=== PATIENT | male | born 1980 | race Caucasian/White ===

== ENCOUNTER 2019-12-23 11:52 | Emergency (ER) | payer BC, SELFPAY ==
[2019-12-23 12:09] VITALS: BP 165/90; PULSE 72; RESP 16; TEMP 37.2; O2SAT 98; BMI 39.3
--- NOTE | 2019-12-23 12:12 | HMH.EDUTC ---
[facility] [place] Clinical Impression: COVID-19 Disposition: Home, Self-Care Condition on Discharge: Good Instructions: Preventing the Spread of Coronavirus Discharge Instructions Additional Instructions: Drink plenty of fluids. Take tylenol for pain or fever. Return if you begin to have difficulty breathing. Follow up with your regular doctor. GO TO THE ER FOR ANY WORSENING SYMPTOMS Referrals: PCP,No [Primary Care Provider] - Time of Disposition: 12:14 Medical Decision Making - Medical Records Medical records reviewed: No: I reviewed the patient's medical records. - Chevy Inquiry Pt receiving controlled substance: No Vital Signs: 12/23/19 12:09 12/23/19 12:32 Temperature 99 F 99 F Temperature Source Oral Oral Pulse Rate 72 Pulse Rate [Radial] 72 Respiratory Rate 16 16 Blood Pressure 165/90 H Blood Pressure [Right Arm] 165/90 H Blood Pressure Mean [Right Arm] 115 Blood Pressure Source Automatic Cuff Blood Pressure Source [Right Arm] Automatic Cuff Blood Pressure Position Sitting Blood Pressure Position [Right Arm] Sitting 02 Sat by Pulse Oximetry 98 Oxygen Delivery Method Room Air Room Air [facility] [place] - General Stated complaint: covid positive, needs another test Time Seen by Provider: 12/23/19 12:12 - History of Present Illness Provider Complaint: He tested positive last week for covid. He denies any symptoms in the past several days. He needs a negative test to be allowed to go back to work. - Related Data Allergies Allergy/AdvReac Type Severity Reaction Status Date / Time No Known Allergies Allergy Verified 12/23/19 12:12 [facility] History - Hepatitis A Screen Attestation statement:: This patient has been screened for Hepatitis A risk factors. I have reviewed the patient's past medical history: Yes ROS Obtained: Yes All systems reviewed & no additional complaints - Constitutional Constitutional: Reports system reviewed and no additional complaints, except as docu - Eyes Eyes: Reports system reviewed and no additional complaints, except as docu - ENT Ears, Nose, Mouth, and Throat: Reports system reviewed and no additional complaints, except as docu - Cardiovascular Cardiovascular: Reports system reviewed and no additional complaints, except as docu - Respiratory Respiratory: Yes system reviewed and no additional complaints, except as docu Physical Exam - General General appearance: alert, in no apparent distress - Head Head exam: atraumatic, normocephalic, normal inspection - Eye Eye exam: Present: normal appearance, PERRL, EOMI - ENT ENT exam: Present: normal exam, normal oropharynx, mucous membranes moist, TM's normal bilaterally, normal external ear exam - Neck Neck exam: Present: normal inspection, full ROM, trachea midline. Absent: meningismus, lymphadenopathy - Chest Chest inspection: Present: normal inspection, symmetric chest wall rise. Absent: tenderness - Respiratory Respiratory exam: Present: normal lung sounds bilaterally. Absent: respiratory distress - Cardiovascular Cardiovascular exam: Present: regular rate, normal rhythm. Absent: JVD - Abdominal Exam Abdominal exam: Present: soft, normal bowel sounds. Absent: distention, tenderness, guarding - Extremities Exam Extremities exam: Present: normal inspection, full ROM, normal capillary refill. Absent: calf tenderness - Back Exam Back exam: Present: normal inspection. Absent: tenderness - Neurological Exam Neurological exam: Present: alert, oriented X3 - Psychiatric Psychiatric exam: Present: normal affect, normal mood - Skin Skin exam: Present: warm, dry, intact, normal color - Lymphatic Lymphatic Findings: no adenopathy
[2019-12-23 12:32] VITALS: BP 165/90; PULSE 72; RESP 16; TEMP 37.2; O2SAT 98
== END 2019-12-23 12:33 | disposition home or self-care (01) ==
PROVIDERS: Emergency Provider Nurse Practitioner Family
DX: Z20.828 Contact with and (suspected) exposure to other viral communicable diseases (principal)
CPT/HCPCS: 99201; U0003

== ENCOUNTER 2021-01-03 16:34 | Emergency (ER) | payer BC, SELFPAY ==
[2021-01-03 17:21] VITALS: BP 169/116; PULSE 81; RESP 16; TEMP 36.8; O2SAT 97; BMI 36.1
--- NOTE | 2021-01-03 17:56 | HMH.EDUTC ---
[facility] [place] Impression: Sinusitis Qualifiers: Sinusitis location: unspecified location Chronicity: acute Recurrence: non-recurrent Qualified Code(s): J01.90 - Acute sinusitis, unspecified Disposition: Home, Self-Care Condition on Discharge: Good Instructions: DI for Sinusitis Additional Instructions: Drink plenty of fluids. Take tylenol or ibuprofen for pain or fever. Take the medications as directed. Follow up with your regular doctor. GO TO THE ER FOR ANY WORSENING SYMPTOMS Prescriptions: Benzonatate [Benzonatate 100mg cap] 100 mg PO TIDP PRN #30 cap PRN Reason: Cough Transmission Status: Pending to [facility] methylPREDNISolone [Medrol] 4 mg PO DIRECTED 6 Days #21 packet Transmission Status: Pending to [facility] Azithromycin [Z-Mainor 250mg Tab*] 250 mg PO UD DOSE PK #6 tab Transmission Status: Pending to [facility] Referrals: Provider,Referral, [Primary Care Provider] - Forms: Work/School Release Time of Disposition: 18:01 Medical Decision Making - Medical Records Medical records reviewed: No: I reviewed the patient's medical records. - Chevy Inquiry Pt receiving controlled substance: No Vital Signs: 01/03/21 17:21 Temperature 98.3 F Temperature Source Oral Pulse Rate [Left] 81 Respiratory Rate 16 Blood Pressure [Right Arm] 169/116 H Blood Pressure Mean [Right Arm] 133 02 Sat by Pulse Oximetry 97 [facility] [place] - General Stated complaint: BURNS, sinus pressure Time Seen by Provider: 01/03/21 17:56 Mode of Arrival: Ambulatory Source of Information: Patient Limitations: No Limitations Description of Symptoms (Recalled from Triage Doc. by RN): pt c/o sinus pressure/pain and bilateral ear aches HEENT Symptoms (Recalled from RN notes): Yes (sinus pain/pressure and ears ache) Resp Symptoms (Recalled from RN notes): No Skin Symptoms (Recalled from RN notes): No MS Symptoms (Recalled from RN notes): No Functional Status (Recalled from RN notes): wnl - History of Present Illness Provider Complaint: He states that he has sinus congestion and yellowish/greenish nasal drainage. He is having pain and pressure in his maxillary sinus area. He denies any fever. He denies cough and chest congestion. He denies any contact with someone with covid-19. - Related Data Previous Rx's Medication Instructions Recorded Azithromycin [Z-Mainor 250mg Tab*] 250 mg PO UD DOSE PK #6 tab 01/03/21 Benzonatate [Benzonatate 100mg 100 mg PO TIDP PRN #30 cap 01/03/21 cap] methylPREDNISolone [Medrol] 4 mg PO DIRECTED 6 Days #21 01/03/21 packet Allergies Allergy/AdvReac Type Severity Reaction Status Date / Time No Known Allergies Allergy Verified 12/23/19 12:12 - Worker's Comp Is this a Worker's Comp case?: No [facility] History - Hepatitis A Screen Drug use history?: No High risk sexual behaviors?: No History of sexually transmitted infection?: No Currently employed?: No Childcare worker?: No Do you have indoor plumbing?: Yes Do you have electricity?: Yes Attestation statement:: This patient has been screened for Hepatitis A risk factors. I have reviewed the patient's past medical history: Yes - Social History Alcohol Intake: never Occupational Status: other ROS Obtained: Yes All systems reviewed & no additional complaints - Constitutional Constitutional: Denies chills, Denies fever(s), Reports poor appetite, Reports malaise - Eyes Eyes: Denies eye discharge - ENT Ears, Nose, Mouth, and Throat: Denies dizziness, Denies otalgia, Reports facial pain, Denies lip swelling, Denies mouth lesions, Reports nasal congestion, Reports nasal discharge, Reports sinus pain, Reports sinus pressure, Reports sore throat - Cardiovascular Cardiovascular: Denies chest pain - Respiratory Respiratory: Denies chest congestion, Reports cough, Denies dyspnea, Denies stridor, Denies wheezing - Gastrointestinal Gastrointestingal: Reports: na
[2021-01-03 18:12] VITALS: BP 142/105; PULSE 78; RESP 16; TEMP 36.8
== END 2021-01-03 18:13 | disposition home or self-care (01) ==
PROVIDERS: Emergency Provider Nurse Practitioner Family
DX: J01.90 Acute sinusitis, unspecified (principal)
CPT/HCPCS: 99202; G0463

== ENCOUNTER 2022-05-30 12:26 | Emergency (ER) | payer SELFPAY ==
[2022-05-30 12:50] VITALS: BP 144/93; PULSE 89; RESP 18; TEMP 37.2; O2SAT 98; BMI 37.4
--- NOTE | 2022-05-30 13:16 | EXP.UTC ---
Discharge Plan Disposition Patient Disposition: Home, Self-Care Condition: Good Prescriptions Prescriptions: New methylprednisolone [Medrol (Mainor)] 4 mg tablets,dose pack See Rx Instructions .Route .COMPLEX 6 Days Qty: 21 0RF Rx Instructions: taper pack; ondansetron 4 mg tablet,disintegrating 4 mg PO Q8H PRN (Reason: nausea and vomiting) Qty: 10 0RF amoxicillin-pot clavulanate 875-125 mg Tablet 1 tab PO Q12H Qty: 20 0RF benzonatate 100 mg capsule 100 mg PO TID PRN (Reason: cough) Qty: 15 0RF Referrals Follow up/Referrals: Provider,Referral, MD [Primary Care Provider] - See instructions Activity Restrictions/Add. Instructions Additional Instructions/Restrictions: *Monitor Temp, Over the counter Motrin or Tylenol as directed/as needed Tylenol every 4 hours and Motrin every 6 hours (as long as your family doctor has told you that you can take it) for fever or pain. and straight to ER if unable to lower temp less than 101.0 after medication given *Warm salt water gargles may help to soothe the throat *Throat Lozenges? *Warm fluids like tea with honey may help to soothe the throat? *Sleep elevated *Humidifier/Vaporizer Your throat swab was sent for culture. Those results are typically sent to your primary care. Be sure to follow up in 2-3 days with your family doctor/primary care physician if no improvement so they can review those result and treat if necessary. If you don?t have a primary care doctor, I recommend you get one but in the mean time, you will have to return to a walk in clinic Follow up IMMEDIATELY for new or worsening symptoms or no Noticeable improvement over the next 48-72 hours. 911 for difficulty breathing or swallowing Clinical Impressions Clinical Impression: Sinusitis, Bronchitis Stand Alone Forms Stand Alone Forms: Work/School Release Instructions Patient Instructions: DI for Sinusitis, Acute Bronchitis Discharge ED Provider: Nenita Franklin [facility] [place] HPI General Stated complaint: soa, cough, vomiting, body aches, BURNS Mode of Arrival: Ambulatory Source of Information: Patient Limitations: No Limitations Time Seen by Provider: 05/30/22 13:17 Description of Symptoms (Recalled from Triage Doc. by RN): body aches, cough, congestion, coughing up mucus, sinus conjestion, headache, nausea, vomiting, lungs hurt and burn when coughing HEENT Symptoms (Recalled from RN notes): Yes Resp Symptoms (Recalled from RN notes): Yes Skin Symptoms (Recalled from RN notes): No MS Symptoms (Recalled from RN notes): No Functional Status (Recalled from RN notes): n/a History of Present Illness Provider Complaint: Patient state that he has been having sinus pain and pressure, sore throat, cough, at time he will cough up mucous but feels like it is drainage that is draining in the back of his throat causing him to cough States that this morning he had an episode of vomiting and nausea and feels like the pressure in his sinuses is getting worse Related Data Previous Rx's Medication Instructions Recorded amoxicillin 875 mg-potassium 1 tab PO Q12H #20 tabs 05/30/22 clavulanate 125 mg tablet benzonatate 100 mg capsule 100 mg PO TID PRN cough #15 caps 05/30/22 methylprednisolone 4 mg tablets in See Rx Instructions .Route 05/30/22 a dose pack (Medrol (Mainor)) .COMPLEX 6 days #21 tabs ondansetron 4 mg disintegrating 4 mg PO Q8H PRN nausea and 05/30/22 tablet vomiting #10 tabs Allergies Allergy/AdvReac Type Severity Reaction Status Date / Time No Known Allergies Allergy Verified 05/30/22 12:50 Worker's Comp Is this a Worker's Comp case?: No [facility] Disclaimer: The information contained in this section may have been updated after the patient was seen, as this information can be updated by other users. Medical History (Updated 05/30/22 @ 13:38 by Nenita Franklin APRN) No significant past medical history Surgical History (Updated 05/30/22 @ 12:49 by Ricarda
[2022-05-30 13:31] LABS: UTC Strep Screen (Rapid) Negative (Negative)
[2022-05-30 13:56] VITALS: BP 148/93; PULSE 89; RESP 18; TEMP 37.2
== END 2022-05-30 13:57 | disposition home or self-care (01) ==
PROVIDERS: Emergency Provider Nurse Practitioner
DX: J20.9 Acute bronchitis, unspecified (principal); J01.90 Acute sinusitis, unspecified; R06.02 Shortness of breath; R11.2 Nausea with vomiting, unspecified
CPT/HCPCS: 87880; 99212; 99214; G0463

== ENCOUNTER 2022-11-10 08:50 | Emergency (ER) | payer SELFPAY ==
[2022-11-10 08:51] VITALS: BP 154/96; PULSE 71; RESP 18; TEMP 37.1; O2SAT 97; BMI 36.4
[2022-11-10 09:28] LABS: UTC Influenza A Antigen Negative (Negative); UTC Influenza B Antigen Negative (Negative)
--- NOTE | 2022-11-10 09:37 | EXP.UTC ---
Discharge Plan Disposition Patient Disposition: Home, Self-Care Condition: Good Prescriptions Prescriptions: New ondansetron 4 mg Tablet,Disintegrating 4 mg PO Q8H PRN (Reason: Nausea) Qty: 12 0RF Referrals Follow up/Referrals: Provider,Referral, MD [Primary Care Provider] - See instructions Activity Restrictions/Add. Instructions Additional Instructions/Restrictions: Drink plenty of fluids. Take tylenol or ibuprofen for pain or fever. Take the medications as directed. Follow up with your regular doctor. GO TO THE ER FOR ANY WORSENING SYMPTOMS Clinical Impressions Clinical Impression: Acute viral syndrome, Gastroenteritis Stand Alone Forms Stand Alone Forms: Work/School Release Instructions Patient Instructions: DI for Viral Gastroenteritis -- Adult, DI for Viral Syndrome, Ondansetron Discharge ED Provider: Kunal Quezada [facility] General Stated complaint: COUGH, VOMITING, DIARRHEA, BURNS Mode of Arrival: Ambulatory Source of Information: Patient Limitations: No Limitations Time Seen by Provider: 11/10/22 09:37 Description of Symptoms (Recalled from Triage Doc. by RN): vomiting, diarrhea, sinus pressure, productive cough, chills HEENT Symptoms (Recalled from RN notes): Yes Resp Symptoms (Recalled from RN notes): No Skin Symptoms (Recalled from RN notes): No MS Symptoms (Recalled from RN notes): No Functional Status (Recalled from RN notes): n/a History of Present Illness Provider Complaint: He states that since last night he has had vomiting, diarrhea, sinus pressure, productive cough, and chills. Related Data Previous Rx's Medication Instructions Recorded ondansetron 4 mg disintegrating 4 mg PO Q8H PRN Nausea #12 tabs 11/10/22 tablet Allergies Allergy/AdvReac Type Severity Reaction Status Date / Time No Known Allergies Allergy Verified 11/10/22 09:19 Worker's Comp Is this a Worker's Comp case?: No [facility] Disclaimer: The information contained in this section may have been updated after the patient was seen, as this information can be updated by other users. Medical History (Updated 11/10/22 @ 09:47 by Kunal Quezada APRN) No significant past medical history Surgical History No significant past surgical history Family History Other No significant family history Social History Smoking Status: Never smoker alcohol intake: current current occupational status: employed Travel in the last 8 weeks: None household members: other ROS Obtained: Yes All systems reviewed & no additional complaints except as documented Constitutional Constitutional: Denies chills, Denies fever(s) and Reports poor appetite ENT Ears, Nose, Mouth, and Throat: Denies dizziness and Denies sore throat Cardiovascular Cardiovascular: Denies dyspnea Respiratory Respiratory: Denies chest congestion, Denies cough and Denies dyspnea Gastrointestinal Gastrointestingal: Reports as per HPI; Denies abdominal pain Musculoskeletal Musculoskeletal: Denies arthralgias Integumentary/Breasts Skin/Breast: Denies rash Neurologic Neurologic: Denies dizziness Physical Exam General General appearance: alert and in no apparent distress Head Head exam: atraumatic and normocephalic Eye Eye exam: Present normal appearance, PERRL and EOMI ENT ENT exam: Present normal exam, normal oropharynx, mucous membranes moist, TM's normal bilaterally and normal external ear exam Neck Neck exam: Present normal inspection, full ROM and trachea midline; Absent tenderness, meningismus or lymphadenopathy Chest Chest inspection: Present normal inspection and symmetric chest wall rise; Absent tenderness, rash or abscess Respiratory Respiratory exam: Present normal lung sounds bilaterally; Absent respiratory distress, wheezes or stridor Cardiovascular Cardiovascular
[2022-11-10 10:10] VITALS: BP 154/96; PULSE 71; RESP 18; TEMP 37.1; O2SAT 97
== END 2022-11-10 10:10 | disposition home or self-care (01) ==
PROVIDERS: Emergency Provider Nurse Practitioner Family
DX: A08.4 Viral intestinal infection, unspecified (principal); R05.9 Cough, unspecified; B34.9 Viral infection, unspecified; R51.9 Headache, unspecified
CPT/HCPCS: 87635; 87804; 99212; 99214; G0463

== ENCOUNTER 2023-11-22 12:23 | Emergency (ER) | payer SELFPAY ==
[2023-11-22 12:24] VITALS: BP 182/119; PULSE 74; RESP 18; TEMP 36.7; O2SAT 99; BMI 36.4
[2023-11-22 12:31] VITALS: BP 186/107; PULSE 72; O2SAT 99
--- NOTE | 2023-11-22 12:33 | XR_ITS ---
FINAL REPORT CLINICAL HISTORY: general malaise FINDINGS: SINGLE-VIEW CHEST The heart size is normal. The mediastinum is normal. The lungs are underinflated but clear. There is no pneumothorax. IMPRESSION: No acute cardiopulmonary process. Reviewed, Interpreted and Dictated by George Moore MD Transcribed by Katherine Mckenna Authenticated and [facility]
--- NOTE | 2023-11-22 12:35 | PC.NURSE ---
dr flowers at bedside
[2023-11-22 12:43] LABS: Lactate Venous 1.4 mmol/L (0.4-2.0); VBG Base Excess -3.7 mmol/L (-2.4-2.3); VBG HCO3 21.8 mmol/L (23-30); VBG Oxygen Saturation 68.8 % (50-70); VBG PCO2 39.3 mmol/L (35-51); VBG PH 7.36 mmol/L (7.31-7.41); VBG PO2 34.3 mmol/L (28-40)
[2023-11-22 12:44] LABS: Basophils # 0.1 K/mm3 (0-0.2); Basophils % 2.1 % (0.1-2.0); Eosinophils # 0.1 K/mm3 (0.0-0.4); Eosinophils % 1.7 % (0.1-12.0); Hematocrit 48.9 % (42.0-52.0); Hemoglobin 16.9 g/dL (14.1-18.0); Lymphocytes # 2.2 K/mm3 (0.7-4.5); Lymphocytes % 36.9 % (10-50); Mean Corpuscular HGB Conc 34.6 g/dL (31.8-35.4); Mean Corpuscular Volume 80.9 fl (80-94); Mean Platelet Volume 7.6 fl (7.4-10.4); Monocytes # 0.3 K/mm3 (0.1-1.0); Monocytes % 5.5 % (1.7-9.3); Neutrophils # 3.2 K/mm3 (1.8-7.8); Neutrophils % 53.7 % (37.0-80.0); Platelet Count 210 K/mm3 (142-424); Red Blood Count 6.05 M/mm3 (4.60-6.20); White Blood Count 5.9 K/mm3 (4.8-10.8)
--- NOTE | 2023-11-22 12:44 | ECG_ITS ---
APPROVED REPORT Exam: Resting ECG HR:61 bpm ECG Measurements Heart Rate 61 AXES WV 174 P 26 QRSd 92 QRS 45 QT 424 T -14 QTc 427 Conclusion Sinus rhythm Q wave with T wave inversions 3 and aVF No acute ischemic change Electronically signed by : MELISSA DOUGHERTY, 11/22/2023 14:53:26
--- NOTE | 2023-11-22 12:47 | ED_ITS ---
Discharge Plan Disposition Patient Disposition: Home, Self-Care Prescriptions Prescriptions: New atorvastatin 20 mg tablet 20 mg PO DAILY Qty: 30 1RF metformin 500 mg tablet 500 mg PO BIDWMEAL Qty: 60 1RF No Action ondansetron 4 mg Tablet,Disintegrating 4 mg PO Q8H PRN (Reason: Nausea) Qty: 12 0RF Referrals Follow up/Referrals: Provider,Referral, MD [Primary Care Provider] - See instructions Activity Restrictions/Add. Instructions Additional Instructions/Restrictions: Call your family doctor to establish care for this visit to the emergency department and schedule follow-up within 48 hours to ensure improvement. If you have any worsening of your condition or any other concerning signs or symptoms, return to the emergency department or your primary care doctor for further evaluation. Metformin twice daily until following up with PCP. Statin once daily. Clinical Impressions Clinical Impression: Diabetes mellitus, new onset, Hyperlipidemia, Episodic lightheadedness Print Language Print Language: Gibralt[place] Discharge ED Provider: Riley Gleason General Adult HPI General Chief complaint: Recheck/Abnormal Lab/Rx Stated complaint: high b/p, high glucose Time Seen by Provider: 11/22/23 12:31 Mode of Arrival: Ambulatory Source of Information: Patient Limitations: No Limitations Description of Symptoms (Recalled from ER Triage Doc. by RN): elevated fsbs,hypertension. History of Present Illness HPI narrative: Please note that above description of symptoms, in this electronic medical record under categorization of recalled from ER triage doctor by RN are reflective of an initial nursing assessment, however, is not reflective of my full history and physical exam that was personally taken and clarified. Consequentially, this preceding description of symptoms, which may include the patient's categorized chief complaint in the EMR, do not reflect my personal clinical impression, and the ultimate description of history of present illness and patient stated complaints should be deferred to this section of the note. Unless stated otherwise or congruent with this section of the note, additional signs, symptoms, or incongruence should be interpreted as inaccurate with my clinical impression. Related Data Previous Rx's ?Medication ?Instructions ?Recorded ondansetron 4 mg disintegrating 4 mg PO Q8H PRN Nausea #12 tabs 11/10/22 tablet atorvastatin 20 mg tablet 20 mg PO DAILY #30 tabs 11/22/23 metformin 500 mg tablet 500 mg PO BIDWMEAL #60 tabs 11/22/23 Allergies Allergy/AdvReac Type Severity Reaction Status Date / Time No Known Allergies Allergy Verified 11/10/22 09:19 [facility] Disclaimer: The information contained in this section may have been updated after the patient was seen, as this information can be updated by other users. Medical History (Updated 11/22/23 @ 14:20 by Riley Gleason MD) No significant past medical history Surgical History No significant past surgical history Family History Other No significant family history Social History Smoking Status: Never smoker alcohol intake: current current occupational status: employed Travel in the last 8 weeks: None household members: other ROS Obtained: Yes All systems reviewed & no additional complaints except as documented Physical Exam General General appearance: alert, in no apparent distress and obese Head Head exam: atraumatic and normocephalic Eye Eye exam: Present normal appearance, PERRL and EOMI Neck Neck exam: Present normal inspection, full ROM and trachea midline Respiratory Respiratory exam: Absent respiratory distress, wheezes, stridor, accessory muscle use or prolonged expiratory phase Cardiovascular Cardiovascular exam: Present regular rate, normal rhythm and other (Pulses equal symmetric in upper and lower extremities) Abdominal Exam Abdominal exam: Present soft; Absent distention, tenderness, guarding, rebound or pulsatile mass Extremities Exam Extremities exam: Absent edema Neurological Exam Neurological exam: Present alert, oriented X3, CN II-XII intact and normal gait; Absent motor sensory deficit Skin Skin exam: Present warm and dry; Absent diaphoresis or erythema Medical Decision Making Medical Records Medical records reviewed: Yes I reviewed the patient's medical records. Screening: Per USPSTF and CDC recommendations, given the prevalence of disease in our region, it is our hospital?s policy to screen for HIV and viral Hepatitis for all patients aged 18 and over and those with ongoing risk factors. Chevy Inquiry Pt receiving controlled substance: No Chevy was queried for this patient: No Vital Signs: 11/22/23 12:24 Temperature 98.1 F Temperature Source Oral Pulse Rate [Right] 74 Respiratory Rate 18 Blood Pressure [Right Arm] 182/119 H Blood Pressure Mean [Right Arm] 140 02 Sat by Pulse Oximetry 99 Lab Data Lab Results 11/22/23 12:34: VBG pH 7.36, VBG pCO2 39.3, VBG pO2 34.3, VBG HCO3 21.8 L, VBG Total CO2 23.0, VBG O2 Saturation 68.8, VBG Base Excess -3.7 L, VBG Lactic Acid 1.4 11/22/23 12:35: WBC 5.9, RBC 6.05, Hgb 16.9, Hct 48.9, MCV 80.9, MCH 28.0, MCHC 34.6, RDW 14.0, Plt Count 210, MPV 7.6, Neut % (Auto) 53.7, Lymph % (Auto) 36.9, [place] % (Auto) 5.5, Eos % (Auto) 1.7, Baso % (Auto) 2.1 H, Neut # (Auto) 3.2, Lymph # (Auto) 2.2, [place] # (Auto) 0.3, Eos # (Auto) 0.1, Baso # (Auto) 0.1, PT 10.4, INR 0.92, APTT 25.2, D-Dimer < 0.25, Sodium 137, Potassium 3.9, Chloride 103, Carbon Dioxide 25, Anion Gap 12.9, BUN 8 L, Creatinine 0.60 L, Estimated Creat Clear 280, Estimated GFR 148, Est GFR ( Amer) 180, Glucose 242 H, H emoglobin A1c 10.8 H, Calcium 9.2, Magnesium 1.9, Total Bilirubin 1.0, AST 33, ALT 45, Alkaline Phosphatase 94, Troponin I < 0.01, Total Protein 7.9, Albumin 4.7, Globulin 3.2, Albumin/Globulin Ratio 1.5, Triglycerides 271 H, Cholesterol 245 H, LDL Cholesterol Direct 121.04, VLDL Cholesterol 54 H, HDL Cholesterol 51, Cholesterol/HDL Ratio 4.8 H, Lipase 59, TSH 2.77, Thyroxine (T4) 9.1, Acetone Level None detected 11/22/23 12:35 11/22/23 12:35 Orders (Tests/Meds): ORDERS Category Date Time Status XR chest portable Stat Exams 11/22/23 12:33 Completed Acetone, Serum (Rapid) Stat Lab 11/22/23 12:35 Completed Complete Blood Count Auto Diff Stat Lab 11/22/23 12:35 Completed Comprehensive Metabolic Panel Stat Lab 11/22/23 12:35 Completed D-Dimer Stat Lab 11/22/23 12:35 Completed Drug Screen,Urine Stat Lab 11/22/23 12:33 Ordered HIV (1&2) Antibody Rapid Stat Lab 11/22/23 12:35 Received Hemoglobin A1C Stat Lab 11/22/23 12:35 Completed Hep C Ab with Reflex to RNA Stat Lab 11/22/23 12:35 Received Lipase Stat Lab 11/22/23 12:35 Completed Lipid Panel Stat Lab 11/22/23 12:35 Completed Magnesium Stat Lab 11/22/23 12:35 Completed PT INR [Prothrombin Time INR] Stat Lab 11/22/23 12:35 Completed PTT [Activated Partial Thrombo Time] Stat Lab 11/22/23 12:35 Completed T4 (Thyroxine) Stat Lab 11/22/23 12:35 Completed TSH [Thyroid Stimulating Hormone] Stat Lab 11/22/23 12:35 Completed Troponin I Q3H Lab 11/22/23 15:45 Ordered Troponin I Q3H Lab 11/22/23 18:45 Ordered Troponin I Stat Lab 11/22/23 12:35 Completed Urinalysis and Microscopic Stat Lab 11/22/23 12:34 Ordered Venous Blood Gas Stat RT 11/22/23 12:34 Completed Medical Decision Narrative: 43-year-old male history of obesity, prediabetes in the remote past not currently on any medications presenting with multiple complaints. Patient states that yesterday, 11/20 in the afternoon, he began to feel unlike himself. States I feel like my equilibrium is off, stating example such as intermittent fuzzy vision, fatigue, lightheadedness when standing. Denies nausea, vomiting, diarrhea, chest pain, shortness of breath, vision changes, any other neurologic deficits. Was recently seen in urgent care and diagnosed with hypertension and high sugar. Came for further evaluation in the setting of all of these things.. Not currently having any symptoms history was obtained via conversation with On arrival, patient hemodynamically stable, alert, oriented x4, appropriate, GCS 15, moving all extremities spontaneously, pupils equal and reactive to light. Full physical exam performed and significant for obese male in no acute distress. Neurovascularly intact. Ambulatory without issue. NIHSS 0. Denying any blurry vision at this time. EOMs intact and full. No evidence of aphasia. Cardiopulmonary exam within normal limits. Abdomen soft, nontender, nondistended. No flank tenderness. Overall unremarkable and nonfocal physical exam. Differential includes dehydration, metabolic abnormality, endocrinologic abnormality, symptomatic hypertension, diabetic emergency, ACS, ME, malignant arrhythmia, among others. Patient placed on continuous cardiac monitoring and continuous pulse ox with initial blood pressure 182/119, heart rate 74, saturation 99% on room air. Independent interpretation of EKG shows sinus rhythm 61 bpm with ME 174, QRS 92, QTc 427. Patient has Q waves and inverted T waves in 3 and aVF without reciprocal change. Normal axis. Patient was given p.o. challenge for symptomatic management and correction of underlying abnormalities. Workup independently interpreted and significant for nonactionable CBC. Chemistry with hyperglycemia and A1c 10.8. Patient's troponin negative. Lipid panel high. On independent interpretation of imaging, no cardiopulmonary airspace disease. See radiology read for full review of final results. Heart score 2 for risk factors. On reevaluation, patient resting comfortably. Given patient presentation, workup, history, this most likely represents mild dehydration in the setting of hyperglycemia. Because patient at baseline without signs or symptoms of clinical decompensation, deemed appropriate for discharge. Results were relayed to patient who voiced understanding and were agreeable to outpatient management and follow up. I discussed my clinical impression with patient and answered all questions. At this time, the evidence for any other entities in the differential is insufficient to warrant any further testing or ED observation. This was explained as well. Advisory was given that persistent or worsening symptoms require further evaluation. I confirmed the understanding of this discussion. Medical Office Assistant Instructor disclaimer Much of this encounter note is an electronic certified cytotechnologist spoken language to printed text. Electronic certified cytotechnologist of the spoken language may permit errors. Although I have reviewed the note, some errors may still exist. Critical Care Critical Care Time Critical Care Time: No
--- NOTE | 2023-11-22 12:47 | PC.NURSE ---
xr at bedside
[2023-11-22 12:51] LABS: Albumin Level 4.7 g/dl (3.5-5.0)
[2023-11-22 12:53] LABS: Blood Urea Nitrogen 8 mg/dl (9-20); Creatinine Clearance Estimated 280 mL/min (50-200); Estimated Glomerular Filt Rate 148 ml/min (>60); GFR (African American) 180 ML/MIN (>60)
[2023-11-22 12:54] LABS: Alanine Aminotransferase 45 U/L (12-78); Albumin/Globulin Ratio 1.5 (1.1-1.8); Alkaline Phosphatase 94 U/L (38-126); Anion Gap 12.9 mEq/L (5-15); Aspartate Amino Transferase 33 U/L (17-59); Calcium 9.2 mg/dl (8.4-10.2); Carbon Dioxide 25 mmol/L (22.0-30.0); Chloride 103 mmol/L (98-107); Globulin 3.2 g/dL (1.3-3.2); Glucose 242 mg/dl (74-100); Potassium 3.9 mmoL/L (3.5-5.1); Sodium 137 mmol/L (136-145); Total Protein,Serum 7.9 g/dl (6.3-8.2)
[2023-11-22 12:55] LABS: Acetone, Serum (Rapid) None Detected (None Detect)
[2023-11-22 12:56] LABS: Lipase 59 U/L (23-300)
[2023-11-22 12:57] LABS: Activated Partial Thrombo Time 25.2 seconds (22.8-30.6); Chol/HDL Ratio 4.8 (1-3.5); Cholesterol 245 mg/dl (140-200); HDL Cholesterol 51 mg/dl (40-60); INR 0.92 (0.9-1.1); Magnesium 1.9 mg/dl (1.6-2.3); Prothrombin Time 10.4 seconds (10.1-12.5); Triglycerides 271 mg/dl (30-150); VLDL Cholesterol 54 mg/dL (0-40)
[2023-11-22 13:01] VITALS: BP 166/111; PULSE 68; O2SAT 97
[2023-11-22 13:05] LABS: Direct LDL Cholesterol 121.04 mg/dL (100-129)
[2023-11-22 13:14] LABS: T4 (Thyroxine) 9.1 ug/dl (5.53-11.0)
[2023-11-22 13:18] LABS: D-Dimer < 0.25 ug/mL (0.0-0.5)
[2023-11-22 13:27] LABS: Thyroid Stimulating Hormone 2.77 uIU/mL (0.465-4.68)
[2023-11-22 13:31] VITALS: BP 150/102; PULSE 72; O2SAT 97
[2023-11-22 13:32] LABS: Troponin I < 0.01 ng/ml (0.00-0.034)
[2023-11-22 13:46] LABS: Hemoglobin A1C 10.8 % (4.0-6.0)
[2023-11-22 14:00] VITALS: BP 152/105; PULSE 68; O2SAT 97
[2023-11-22 14:30] VITALS: BP 146/108; PULSE 67; PULSE 74; RESP 18; TEMP 36.7; O2SAT 98
[2023-11-22 14:57] LABS: HIV (1&2) Antibody Rapid NONREACTIVE (NONREACTIVE)
[2023-11-23 08:28] LABS: HCV Ab Non Reactive (Non Reactive)
== END 2023-11-22 14:30 | disposition home or self-care (01) ==
PROVIDERS: Emergency Provider Emergency Medicine
DX: E78.5 Hyperlipidemia, unspecified; E11.9 Type 2 diabetes mellitus without complications; R53.83 Other fatigue; R03.0 Elevated blood-pressure reading, without diagnosis of hypertension; H53.8 Other visual disturbances; R42 Dizziness and giddiness
CPT/HCPCS: 71045; 80053; 80061; 82009; 82803; 83036; 83690; 83735; 84436; 84443; 84484; 85025; 85378; 85610; 85730; 86803; 87389; 93005; 99284

== ENCOUNTER 2024-01-09 10:00 | Emergency (ER) | payer BC, SELFPAY ==
[2024-01-09 11:10] VITALS: BP 171/109; PULSE 80; RESP 18; TEMP 37.3; O2SAT 97; BMI 37.0
--- NOTE | 2024-01-09 11:10 | ED_ITS ---
Discharge Plan Disposition Patient Disposition: Home, Self-Care Condition: Good Prescriptions Prescriptions: New azithromycin [Zithromax] 250 mg tablet 250 mg PO UD DOSE PK Qty: 6 0RF Rx Instructions: Take two (2) tablets today, then one (1) tablet days #2 thru #5 benzonatate 100 mg capsule 100 mg PO TIDP PRN (Reason: Cough) Qty: 30 0RF methylprednisolone 4 mg Tablets,Dose Pack 4 mg PO DIRECTED 6 Days Qty: 21 0RF Rx Instructions: Take 1 pack as directed for 6 days Referrals Follow up/Referrals: Darrius Garduno [Primary Care Provider] - See instructions Activity Restrictions/Add. Instructions Additional Instructions/Restrictions: Drink plenty of fluids. Take tylenol or ibuprofen for pain or fever. Take the medications as directed. Follow up with your regular doctor. GO TO THE ER FOR ANY WORSENING SYMPTOMS Clinical Impressions Clinical Impression: Bronchitis Sinusitis Qualifiers: Sinusitis location: unspecified location Chronicity: unspecified Qualified Code(s): J32.9 - Chronic sinusitis, unspecified Stand Alone Forms Stand Alone Forms: Work/School Release Instructions Patient Instructions: Sinusitis, DI for Sinusitis, Azithromycin, Methylprednisolone Injection Print Language Print Language: Japanese Discharge ED Provider: Kunal Quezada [facility] HPI General Stated complaint: congestion Time Seen by Provider: 01/09/24 11:10 Related Data Previous Rx's ?Medication ?Instructions ?Recorded azithromycin 250 mg tablet 250 mg PO UD DOSE PK #6 tabs 01/09/24 (Zithromax) benzonatate 100 mg capsule 100 mg PO TIDP PRN Cough #30 caps 01/09/24 methylprednisolone 4 mg tablets in 4 mg PO DIRECTED 6 days #21 tabs 01/09/24 a dose pack Allergies Allergy/AdvReac Type Severity Reaction Status Date / Time No Known Allergies Allergy Verified 11/10/22 09:19 [facility] Disclaimer: The information contained in this section may have been updated after the patient was seen, as this information can be updated by other users. Medical History (Updated 01/09/24 @ 11:22 by Kunal Quezada APRN) No significant past medical history Surgical History No significant past surgical history Family History Other No significant family history Social History Smoking Status: Never smoker alcohol intake: current current occupational status: employed Travel in the last 8 weeks: None household members: other ROS Obtained: Yes All systems reviewed & no additional complaints except as documented Constitutional Constitutional: Reports chills and Reports fever(s) Eyes Eyes: Denies eye discharge ENT Ears, Nose, Mouth, and Throat: Reports as per HPI Cardiovascular Cardiovascular: Denies chest pain Respiratory Respiratory: Denies chest congestion and Reports cough Gastrointestinal Gastrointestingal: Reports nausea; Denies abdominal pain, constipation, cramping, diarrhea or vomiting Musculoskeletal Musculoskeletal: Denies arthralgias Integumentary/Breasts Skin/Breast: Denies rash Neurologic Neurologic: Denies paresthesias Physical Exam General General appearance: alert and in no apparent distress Head Head exam: atraumatic, normocephalic and normal inspection Eye Eye exam: Present normal appearance, PERRL and EOMI ENT ENT exam: Present mucous membranes moist and normal external ear exam Expanded ENT Exam TM/Canal exam: Bilateral TM: erythema and bulging Nose exam: Absent sinus tenderness Mouth exam: Present normal external inspection; Absent drooling Teeth exam: Present normal inspection Throat exam: Present tonsillar erythema, tonsillomegaly and tonsillar exudate Neck Neck exam: Present normal inspection, full ROM and trachea midline; Absent tenderness, meningismus or lymphadenopathy Chest Chest inspection: Present normal inspection and symmetric chest wall rise; A bsent tenderness Respiratory Respiratory exam: Present normal lung sounds bilaterally; Absent respiratory distress, wheezes, stridor or accessory muscle use Cardiovascular Cardiovascular exam: Present regular rate and normal rhythm; Absent systolic murmur or diastolic murmur Abdominal Exam Abdominal exam: Present soft and normal bowel sounds; Absent distention, tenderness, guarding, rebound or rigidity Extremities Exam Extremities exam: Present normal inspection and normal capillary refill; Absent calf tenderness Back Exam Back exam: Present normal inspection and full ROM; Absent tenderness, CVA tenderness (R) or CVA tenderness (L) Neurological Exam Neurological exam: Present alert, oriented X3 and CN II-XII intact Psychiatric Psychiatric exam: Present normal affect and normal mood Skin Skin exam: Present warm, dry, intact and normal color Medical Decision Making Medical Records Medical records reviewed: No I reviewed the patient's medical records. Screening: Per USPSTF and CDC recommendations, given the prevalence of disease in our region, it is our hospital?s policy to screen for HIV and viral Hepatitis for all patients aged 18 and over and those with ongoing risk factors. Chevy Inquiry Pt receiving controlled substance: No Lab Data Lab results reviewed: Yes I reviewed the patient's lab results.
[2024-01-09 11:25] VITALS: BP 171/109; PULSE 80; RESP 18; TEMP 37.3; O2SAT 97
== END 2024-01-09 11:26 | disposition home or self-care (01) ==
PROVIDERS: Emergency Provider Nurse Practitioner Family; PCP Family Medicine
DX: J32.9 Chronic sinusitis, unspecified (principal); J40 Bronchitis, not specified as acute or chronic; R50.9 Fever, unspecified; R09.81 Nasal congestion; R05.9 Cough, unspecified; R11.0 Nausea
CPT/HCPCS: 99212; G0381